=== PATIENT | female | born 1970 | race Caucasian/White ===

== ENCOUNTER 2016-08-07 09:34 | Outpatient (CLI) | payer OTHER ==
[2016-08-07 09:57] LABS: BASOPHILS # (AUTO) 0.1 10^3/uL (0.0-0.1); BASOPHILS % (AUTO) 1.9 %; EOSINOPHILS # (AUTO) 0.4 10^3/uL (0.0-0.7); EOSINOPHILS % (AUTO) 10.4 %; HCT - HEMATOCRIT 37.4 % (37.0-47.0); HGB - HEMOGLOBIN 12.9 g/dL (12.0-16.0); LYMPHOCYTES # (AUTO) 1.6 10^3/uL (1.5-3.5); LYMPHOCYTES % (AUTO) 38.9 %; MEAN CORPUSCULAR HEMOGLOBIN 30.6 pg (27.0-31.0); MEAN CORPUSCULAR HGB CONC 34.6 g/dL (32.0-36.0); MEAN CORPUSCULAR VOLUME 88.5 fL (81.0-99.0); MEAN PLATELET VOLUME 7.2 fL (7.9-10.8); MONOCYTES # (AUTO) 0.3 10^3/uL (0.0-1.0); MONOCYTES % (AUTO) 6.2 %; NEUTROPHILS # (AUTO) 1.8 10^3/uL (1.5-6.6); NEUTROPHILS % (AUTO) 42.6 %; RED BLOOD COUNT 4.23 10^6/uL (4.20-5.40); RED CELL DISTRIBUTION WIDTH 13.2 % (12.0-15.0); UNCORRECTED WHITE BLOOD COUNT 4.2 x10^3/uL; WHITE BLOOD COUNT 4.2 x10^3/uL (4.8-10.8)
[2016-08-07 10:17] LABS: ALBUMIN/GLOBULIN RATIO 1.3 (1.0-2.2); BILIRUBIN,TOTAL 0.6 mg/dL (0.2-1.0); BUN - BLOOD UREA NITROGEN 11 mg/dL (6-20); CARBON DIOXIDE - CO2 26 mmol/L (21-32); CHLORIDE 107 mmol/L (101-111); CHOL/HDL RATIO 6.1 (<4.4); CHOLESTEROL 218 mg/dL; CREATININE 0.7 mg/dL (0.4-1.0); GFR - MDRD 90 (>89); GLUCOSE 97 mg/dL (70-100); HDL CHOLESTEROL 36 mg/dL; HEMOGLOBIN A1C 0.48 g/dL; POTASSIUM 4.1 mmol/L (3.5-5.0); SODIUM 139 mmol/L (135-145); TRIGLYCERIDES 460 mg/dL
[2016-08-07 10:37] LABS: LDL CHOLESTEROL,DIRECT 82 mg/dL
== END 2016-08-07 09:35 | disposition home or self-care (01) ==
LOC: LAB 09:34
PROVIDERS: ATTEND Physician Assistant
DX: E78.5 Hyperlipidemia, unspecified (principal); R53.83 Other fatigue; E04.9 Nontoxic goiter, unspecified; E55.9 Vitamin D deficiency, unspecified
CPT/HCPCS: 36415; 80053; 80061; 82306; 83036; 84443; 85025

== ENCOUNTER 2016-08-13 08:49 | Outpatient (CLI) | payer OTHER ==
--- NOTE | 2016-08-13 09:43 | Ultrasound Report ---
THYROID ULTRASOUND: 08/13/2016 CLINICAL INDICATION: Enlarged thyroid. TECHNIQUE: Real-time scanning was performed with sales representative trainee static images obtained. FINDINGS: The right lobe measures 4.4 x 1.8 x 1.4 cm, and the left lobe measures 3.8 x 1.3 x 1.2 cm. The isthmus measures 3 mm. The thyroid demonstrates homogeneous echotexture throughout. No focal nod ule is appreciated. No adenopathy is seen. IMPRESSION: NORMAL THYROID ULTRASOUND. JOB #: [id number] EXT JOB #:[id number]
== END 2016-08-13 08:50 | disposition home or self-care (01) ==
LOC: DI 08:49
PROVIDERS: ATTEND Physician Assistant
DX: E04.9 Nontoxic goiter, unspecified (principal)
CPT/HCPCS: 76536

== ENCOUNTER 2016-09-18 14:32 | Outpatient (CLI) | payer OTHER | END 2016-09-18 14:33 | disposition home or self-care (01) | LOC: SC 14:32 | PROVIDERS: ATTEND Internal Medicine Pulmonary Disease | DX: G47.30 Sleep apnea, unspecified (principal); G47.8 Other sleep disorders; R06.83 Snoring; G47.10 Hypersomnia, unspecified | CPT/HCPCS: 99203; 99212 ==

== ENCOUNTER 2017-01-02 22:33 | Outpatient (CLI) | payer OTHER | END 2017-01-02 22:34 | disposition home or self-care (01) | LOC: SC 22:33 | PROVIDERS: ATTEND Internal Medicine Pulmonary Disease | DX: G47.33 Obstructive sleep apnea (adult) (pediatric) (principal); Z68.35 Body mass index [BMI] 35.0-35.9, adult | CPT/HCPCS: 95810 ==

== ENCOUNTER 2017-02-18 11:35 | Outpatient (CLI) | payer OTHER | END 2017-02-18 11:36 | disposition home or self-care (01) | LOC: SC 11:35 | PROVIDERS: ATTEND Internal Medicine Pulmonary Disease | DX: G47.33 Obstructive sleep apnea (adult) (pediatric) (principal) | CPT/HCPCS: 99212; 99213 ==

== ENCOUNTER 2018-01-20 21:29 | Outpatient (CLI) | payer OTHER ==
--- NOTE | 2018-01-20 23:11 | Ultrasound Report ---
Reason: UNSPECIFIED ABDOMINAL PAIN Procedure Date: 01/20/2018 Accession Number: [id number] / [id number] Procedure: US - Abdomen Complete CPT Code: FULL RESULT: EXAM: ABDOMEN ULTRASOUND EXAM DATE: 01/20/2018 10:47 PM. CLINICAL HISTORY: Abdominal pain. COMPARISON: 05/19/2015. TECHNIQUE: Real-time scanning was performed with static images obtained. FINDINGS: Liver: Echogenic. 16.7 cm. Main portal vein flow: Hepatopetal. Gallbladder: Normal. No stones, wall thickening, or sonographic Cheney's sign. Biliary System: Common bile duct measures 3 mm. No intrahepatic or extrahepatic ductal dilatation. Pancreas: Visualized portion is unremarkable. Kidneys: Right: 11.1 cm longitudinally. Normal. No contour-deforming mass, stones, or hydronephrosis. Left: 9.7 cm longitudinally. Normal. No contour-deforming mass, stones, or hydronephrosis. Spleen: 9.8 cm. Normal in size and echotexture. Aorta and Inferior Vena Cava: Unremarkable where seen. Other: None. IMPRESSION: 1. Fatty liver. 2. Otherwise normal exam. RADIA
== END 2018-01-20 21:30 | disposition home or self-care (01) ==
LOC: DI 21:29
PROVIDERS: ATTEND Internal Medicine
DX: R10.9 Unspecified abdominal pain (principal); K76.0 Fatty (change of) liver, not elsewhere classified
CPT/HCPCS: 76700

== ENCOUNTER 2019-06-18 09:51 | Outpatient (CLI) | payer BC ==
--- NOTE | 2019-06-18 10:28 | XRAY Report ---
Reason: CALCIFIC TENDINITIS OF RIGHT SHOULDER Procedure Date: 06/18/2019 Accession Number: [id number] / [id number] Procedure: XR - Shoulder 3 View RT CPT Code: Final Report FULL RESULT: EXAM: RIGHT SHOULDER RADIOGRAPHY EXAM DATE: 06/18/2019 10:02 AM. CLINICAL HISTORY: CALCIFIC TENDINITIS OF RIGHT SHOULDER. COMPARISON: SHOULDER 3 VIEW RT 05/18/2014 2:56 PM. TECHNIQUE: 3 views. FINDINGS: Bones: Normal. No fracture or bone lesion. Joints: Joint spacing is maintained. No evidence of dislocation. Soft tissues: Increased calcification at the lateral margin of the acromiohumeral interval. IMPRESSION: 1. Interval increase in acromiohumeral interval calcific tendinopathy. 2. Joint spacing is maintained. 3. No evidence of acute fracture or dislocation. RADIA
== END 2019-06-18 09:52 | disposition home or self-care (01) ==
LOC: DI 09:51
PROVIDERS: ATTEND Nurse Practitioner Family
DX: M75.31 Calcific tendinitis of right shoulder (principal)

== ENCOUNTER 2019-11-14 14:45 | Emergency (ER) | payer BC ==
--- NOTE | 2019-11-14 14:51 | ED Physician Documentation ---
PD HPI UPPER EXT INJURY - Stated complaint Stated Complaint: RT THUMB LAC - History obtained from History obtained from: Patient, Family - History of Present Illness Location: Right, Finger (thumb) Type of injury: Laceration Where injury occurred: Home Timing - onset: Today Timing - duration: Minutes Timing - details: Abrupt onset, Still present Improved by: Rest, Immobilization Worsened by: Moving, Palpating Associated symptoms: No: Weakness, Numbness, Tingling Contributing factors: No: Anticoagulated Similar symptoms before: Diagnosis (laceration) Recently seen: Not recently seen - Additonal information Additional information: 49-year-old female previously well was working on a home project today when she caught her thumb on a nail from a piece of trim. She has a laceration to the thumb and she is unable to control bleeding without direct pressure. She is not up to date on her tetanus. Review of Systems Constitutional: denies: Fever Eyes: denies: Decreased vision Nose: denies: Congestion Throat: denies: Sore throat Respiratory: denies: Cough GI: denies: Vomiting Skin: reports: Laceration (s) PD PAST MEDICAL HISTORY - Allergies Allergies/Adverse Reactions: Allergies Allergy/AdvReac Type Severity Reaction Status Date / Time Sulfa (Sulfonamide Allergy Intermediate Hives Verified 11/14/19 14:54 Antibiotics) PD ED PE NORMAL - Vitals Vital signs reviewed: Yes (hypertensive ) - General General: Alert and oriented X 3, No acute distress, Well developed/nourished - HEENT HEENT: Atraumatic, PERRL, EOMI - Respiratory Respiratory: No respiratory distress - Derm Derm: Normal color, Warm and dry, No rash - Extremities Extremities: No deformity, No edema, Other (There is a superficial right thumb laceration to the distal phlange. The lac is about 2.5cm and clean flap is supe rficial. Disal n/v intact. ) - Neuro Neuro: Alert and oriented X 3, fence installer foreman 2-12 intact, No motor deficit, No sensory deficit, Normal speech Eye Opening: Spontaneous Motor: Obeys Commands Verbal: Oriented GCS Score: 15 - Psych Psych: Normal mood, Normal affect Results - Vitals Vitals: Vital Signs - 24 hr 11/14/19 11/14/19 14:54 15:04 Temperature 36.8 C Heart Rate 88 88 Respiratory 18 18 Rate Blood Pressure 155/82 H 152/82 H O2 Saturation 98 100 Oxygen O2 Source Room air Procedures - Laceration (location) right thumb Length in cm: 2.5 Wound type: Linear, Flap, Clean Neurovascular status: Sensory intact, Motor intact, Vascular intact Tendon involvement: Tendon intact Anesthesia: OTH (lidocaine burn cream) Wound Preparation: Hibiclens, Wound explored, To the base, Other (cleansed with saline and gauze) Skin layer closure: Dermabond, Other (T-ring sure close) Other: Patient tolerated well, No complications, Neurovascular intact, Dressing applied, Tetanus booster given Complexity: Simple PD MEDICAL DECISION MAKING - ED course Complexity details: considered differential, d/w patient, d/w family ED course: 49 y/o female with a superficial laceration to the right thumb has a good looking repair with T-closure and dermabond. Departure - Departure Disposition: 01 Home, Self Care Clinical Impression: Thumb laceration Qualifiers: Encounter type: initial encounter Damage to nail status: without damage Foreign body presence: without foreign body Laterality: right Qualified Code(s): S61.011A - Laceration without foreign body of right thumb without damage to nail, initial encounter Condition: Stable Instructions: ED Laceration Sure Close Follow-Up: Tamanna Mark ARNP [Primary Care Provider] -
[2019-11-14] MEDS ORDERED: TETANUS/DIPHTHERIA/PERTUSSIS 0.5 ML SYRINGE IM ONE (14:58)
[2019-11-14 15:31] VITALS: BP 149/80
== END 2019-11-14 15:30 | disposition home or self-care (01) ==
LOC: ED 14:45
DX: S61.011A Laceration without foreign body of right thumb without damage to nail, initial encounter (principal); W45.8XXA Other foreign body or object entering through skin, initial encounter; Y92.009 Unspecified place in unspecified non-institutional (private) residence as the place of occurrence of the external cause; Z23 Encounter for immunization
CPT/HCPCS: 12001; 90471; 99282; 99283